=== PATIENT | male | born 1995 | race Hispanic/Latino ===

== ENCOUNTER 2018-09-13 22:46 | Emergency (ER) | payer BC ==
[2018-09-13] MEDS ORDERED: AMOXICILLIN/POTASSIUM CLAV 875-125 TABLET PO ONE (23:14)
[2018-09-13] MEDS ORDERED: DEXAMETHASONE SOD PHOSPHATE 10MG/ML 1ML VIAL ONE (23:14)
== END 2018-09-13 23:20 | disposition home or self-care (01) ==
LOC: EDH 22:46
DX: J01.10 Acute frontal sinusitis, unspecified (principal); Z90.89 Acquired absence of other organs; Z98.890 Other specified postprocedural states; Z91.013 Allergy to seafood; Z91.018 Allergy to other foods
CPT/HCPCS: 96372; 99284; J1100

== ENCOUNTER 2023-09-28 23:41 | Emergency (ER) | payer BC ==
[~2023-09-28] VITALS: Ht 180.3 cm; Wt 134.7 kg
[2023-09-29] MEDS: TETRACAINE HCL 0.5% 4 ML OPHTH SOLN OP SCH (00:08)
[2023-09-29] MEDS: FLUORESCEIN SODIUM 1 STRIP STRIP OP SCH (00:09)
[2023-09-29] MEDS ORDERED: ERYT1OIN7 OP (01:08)
[2023-09-29 01:14] VITALS: BP 131/78; PULSE 72; RESP 18; O2SAT 99
== END 2023-09-29 01:17 | disposition home or self-care (01) ==
LOC: EDH 23:41
DX: H10.9 Unspecified conjunctivitis (principal); Z79.899 Other long term (current) drug therapy; Z98.890 Other specified postprocedural states